=== PATIENT | male | born 1935 | race Caucasian/White ===

== ENCOUNTER 2016-10-30 23:56 | Inpatient (IN) | payer MEDICARE, OTHER ==
[~2016-10-30] VITALS: Ht 172.7 cm; Wt 79.0 kg
--- NOTE | ~2016-10-30 | DS ---
ADMIT: 10/31/2016 RM/LOC: 307 [facility] MR#: [id number] ACC#: [id number] [address] [place], [place] [address] TYLER JONES [address] [place] [address] Discharge Summary SEX: M AGE: 81 : 1935 ADMISSION DATE: 10/31/2016 DISCHARGE DATE: 11/03/2016 SERVICE: Neurosurgery. REASON FOR ADMISSION: 1. 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 2. Fall. 3. Nausea, vomiting, and diarrhea. 4. Vertigo. HOSPITAL COURSE: Mr. Jones was in his normal state of health until the day of admission. He fell ill with vomiting, diarrhea, and dizziness. He also had a small headache. He was lying in bed and tried to get up, got dizzy and fell striking his head. His was not able to help him up, and he was brought to [facility] ER by ambulance. A CT scan of his head was obtained and revealed an intracranial hemorrhage. Later that morning, he had decreased level of consciousness. His vital signs were stable. He was awake, confused and agitated. He was moving all extremities x4. An EVD was placed at bedside. A repeat CT scan of his head revealed good placement of the EVD. Hospital day #2, he was awake and alert. He was oriented x4, his vital signs were stable. He was moving all extremities x4 with 5/5 strength. His EVD was intact. He was evaluated and worked with PT, OT, and ST and he tolerated this quite well. Hospital day #3, he was awake and alert, his vital signs were stable. He was moving all extremities x4. His EVD was intact. His EVD was clamped. He continued to work with the therapies and tolerated it very well. Hospital day #4, his vital signs were stable, his ICPs were less than 10. He was awake and alert, mildly disoriented. He was moving all extremities x4. His EVD was removed without difficulty. His wound was clean, dry, and intact. He continued to work with physical therapy, occupational therapy, and speech therapy. A repeat noncontrast head CT revealed no acute findings. He was evaluated by the inpatient rehabilitation unit and deemed to be a good candidate for inpatient rehabilitation with plans to return to his prior function of living status. On the day of discharge, he was deemed medically fit for transfer to the inpatient rehabilitation unit. DISCHARGE CONDITION: Good. MEDICATIONS: Lisinopril 10 mg p.o. daily. ADMIT: 10/31/2016 RM/LOC: 307 [facility] MR#: [id number] [address] [id number] TYLER JONES [address] [facility] [address] Discharge Summary SEX: M AGE: 81 : 1935 DISCHARGE INSTRUCTIONS: He may shower, he should limit the amount of time his incision is under the water. He should use baby shampoo only in his hair. He should continue with physical therapy, occupational therapy, and speech therapy. He will call with any questions or concerns including neurological worsening, signs or symptoms of infection, or any other issues. FOLLOWUP: He will follow up in clinic in [address] Escalante. DISPOSITION: He was discharged to the inpatient rehabilitation unit. Total [id number] time for the discharge planning and care coordination was 30 minutes. Chelo Art APRN / Solomon Escalante MD / yeni JOB #: [id number] CC: Solomon Escalante MD, Attending Physician Solomon Escalante MD, Family Physician
--- NOTE | 2016-10-31 07:48 | HP ---
ADMIT: 10/31/2016 RM/LOC: 307 [facility] MR#: [id number] [id number] [place], [place] [address] TYLER JONES [address] [place] [address] History and Physical SEX: M AGE: 81 : 1935 DATE OF SERVICE: REASON FOR ADMIT: Intracranial hemorrhage. HISTORY OF PRESENT ILLNESS: Mr. Jones is an 81-year-old gentleman who was dizzy in bed. He tried to get up and fell down striking the left part of his head. He has been nauseated and dizzy since then. He doctors with Dr. Chang. PAST MEDICAL HISTORY: Hypertension. MEDICATIONS: He is on lisinopril, although it sounds like this was fairly recently started. ALLERGIES: FLU SHOT. SOCIAL HISTORY: He is a nonsmoker and nondrinker. FAMILY HISTORY: No history of neurosurgical disease. REVIEW OF SYSTEMS: Complete review of systems was obtained and found to be negative with the exception of the aforementioned HPI. Nipride drip has been started for hypertension. PHYSICAL EXAMINATION: VITAL SIGNS: Most recent vital signs 167/85, 73 beats, 20 respirations, 97.1 degrees, 98% on room air. GENERAL: He is an otherwise healthy, age-appropriate appearing 81-year-old gentleman with aleft frontal subgaleal hematoma. HEENT: No scleral icterus. Clear oropharynx, although he is actively dry heaving. LUNGS: Normal respiratory excursion. ABDOMEN: Nontender abdomen. EXTREMITIES: 2+ radial pulses. NEUROLOGICAL EXAMINATION: MENTAL STATUS: He is awake and alert. He is oriented to person and place. CRANIAL NERVES: Cranial nerves II through XII were individually tested. He has nystagmus, worse to the left. No diplopia. MOTOR EXAM: Is difficult to get him to comply with motor exam. He is very nauseated. Every time he moves, he feels like throwing up more, but he appears to have full motor activation of the upper and lower extremities. DEEP TENDON REFLEXES: 3/4 in the upper and lower extremities. CEREBELLAR: I could not really get a full cerebellar examination on him. GAIT: Not testable. He is a significant fall risk. ADMIT: 10/31/2016 RM/LOC: 307 [facility] MR#: [id number] [address] [address] TYLER JONES [address] [place] [address] History and Physical SEX: M AGE: 81 : 1935 ASSESSMENT AND PLAN: Mr. 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 I do not see signs of hydrocephalus at this point. I discussed with his the critical situation of this and that he may require posterior fossa craniotomy, although at this point, he looks very good and he has enough cerebral atrophy. As long as he does not build up hydrocephalus, he may end up getting by from this with the exception of needing months of physical therapy and that the nausea is likely to persist for some time. I believe she understands all of this, including the possibility of as well as other outcomes. We will keep an eye on him in the intensive care unit with a CTA in the morning for repeat evaluation. Solomon Escalante MD/ linette JOB #: [id number] CC: Solomon Escalante, Attending Physician Solomon Escalante, Family Physician
--- NOTE | 2016-11-03 10:16 | OR ---
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 INDICATION: This is a gentleman, who presented overnight. He has a small cerebellar hemorrhage and casting of the 4th ventricle into the aqueduct of Sylvius and 3rd ventricle. He had been doing very well overnight and then had started to slow decline this a.m. I discussed the risks, benefits, and alternatives of external ventricular drainage with his with risks including, but not limited to, OH, DVT, PE, pneumonia, , further intracranial hemorrhage, inability to recover, neurological damage, infection as well as others. I believe, she understands the risks, benefits, and alternatives and wishes to proceed ahead. DESCRIPTION OF PROCEDURE: After gaining informed consent and performing a time-out, the patient's right side of scalp was prepped and draped in usual sterile fashion. This was anesthetized at Miky's point and then an incision was fashioned. The cranial access drill was then used drilling through the skull and then sounding and perforating the dura. Once this was complete, the back to seal external ventricular drain was then passed resulting in fluid at approximately 5 cm, this was advanced down to 7 cm and then tunneled out. This was sewn in place with 2-0 silk and subsequently with 4-0 Monocryl on the insertion site. The patient tolerated the procedure well. The initial CSF did come out under pressure approximately 20 cm to 25 cm above the tragus. He was awake and moving all extremities at the completion of the procedure. Solomon Escalante MD/ linette JOB #: [id number] CC: Solomon Escalante, Attending Physician Sloomon Escalante, Family Physician
--- NOTE | 2016-11-18 21:34 | ER ---
ADMIT: 10/31/2016 RM/LOC: 307 [facility] MR#: [id number] [address] [place], [place] [address] TYLER JONES [address] [place] [address] Emergency Room Report SEX: M AGE: 81 : 1935 DATE: 10/30/2016 HISTORY OF PRESENT ILLNESS: An 81-year-old gentleman, who apparently became sick tonight with vomiting and diarrhea, was dizzy, lightheaded, had a small headache, apparently fell striking the left forehead area. His called the ambulance as she was unable to pick him up, subsequently brought him in here. Patient mildly obtunded, but would answer questions appropriately, was complaining of vomiting and some diarrhea and generalized weakness. PAST MEDICAL HISTORY: Hypertension. He said he had 3 or 4 episodes of vomiting tonight, 1 episode of diarrhea. He said he gets headaches and this headache was no different than his prior. PHYSICAL EXAMINATION: GENERAL: Revealed an 81-year-old gentleman, in moderate amount of distress. He is anxious, restless. HEENT: There was a contusion over the left forehead. Pupils are sluggishly reactive. LUNGS: Clear to auscultation. CARDIOVASCULAR: Tachycardia with no murmurs. ABDOMEN: Mildly tender in the suprapubic region and he had increased bowel tones. SKIN: Significant for contusion over the forehead. EXTREMITIES: Unremarkable. NEUROLOGICAL: He is mildly obtunded, but would answer questions appropriately. NEURO: Cranial nerves II through XII are grossly intact. Muscle strength is symmetric and weak. He was extremely anxious and restless. LABORATORY DATA AND IMAGING: EKG was unremarkable. CT scan of the head revealed intraparenchymal bleed. Neurosurgery was subsequently consulted. The patient was admitted to the Neurosurgery. A heparin drip was started. A CBC was obtained and a CMP and coags. The patient is being admitted for hemorrhagic stroke. Omid Rivera MD/ linette JOB #: [id number] CC: Solomon Escalante MD, Attending Physician Solomon Escalante MD, Family Physician
[2016-11-26] MEDS ORDERED: VITAMIN D31000 UNIT PO (11:28)
[2016-11-26] MEDS ORDERED: FLOMAX DPS0.4 MG PO (11:28)
[2016-11-26] MEDS ORDERED: VITAMIN B-12500 MCG PO (11:28)
[2016-11-26] MEDS ORDERED: SENOKOT S1 TAB PO (11:29)
[2016-11-26] MEDS ORDERED: DITROPAN XL5 MG PO (11:29)
[2016-11-26] MEDS ORDERED: ZESTRIL DPS5 MG PO (11:29)
[2016-11-26] MEDS ORDERED: TYLENOL DPS325 MG PO (11:30)
== END 2016-11-03 13:15 | disposition short-term general hospital (02) | DRG 24 ==
LOC: ER 23:56 → 3ICU 10-31 00:45
PROVIDERS: ADMIT Neurological Surgery
PROC: 03HY32Z Insertion of Monitoring Device into Upper Artery, Percutaneous Approach (ICD-10-PCS; principal; 2016-10-31)
PROC: 009630Z Drainage of Cerebral Ventricle with Drainage Device, Percutaneous Approach (ICD-10-PCS; 2016-10-31)
DX: I61.5 Nontraumatic intracerebral hemorrhage, intraventricular (principal); G91.9 Hydrocephalus, unspecified; I10 Essential (primary) hypertension

== ENCOUNTER 2016-11-11 22:34 | Inpatient (IN) | payer MEDICARE, OTHER ==
[~2016-11-11] VITALS: Ht 170.2 cm; Wt 79.4 kg
--- NOTE | 2016-11-14 10:18 | HP ---
ADMIT: 11/11/2016 RM/LOC: [address] [facility] MR#: [id number] [address] [place], [place] [address] TYLER JONES [address] [place] [address] History and Physical SEX: M AGE: 81 : 1935 Corrected: 11/13/2016 1402 yeni DATE OF SERVICE: CHIEF COMPLAINT: Fever. HISTORY OF PRESENT ILLNESS: The patient is an 81-year-old gentleman I saw in consult in the IRU earlier today. He has had a fever off and on all day. He this evening on routine vitals check had hypotension. This persisted despite IV fluid bolus. He otherwise really does not report any new complaints this evening. No pain. No shortness of breath. No nausea. No vomiting. No confusion. He is still oriented. He had received Cipro IV earlier today. Otherwise, he did not really push his oral fluids today according to nursing. PAST MEDICAL HISTORY: Recent intraventricular hemorrhage earlier this month. SOCIAL HISTORY: The patient quit smoking back in 1996. He is retired, lives at home with his . FAMILY HISTORY: Reviewed and noncontributory. REVIEW OF SYSTEMS: As per HPI. Otherwise, completely reviewed and negative. MEDICATIONS: He is on steroids. He was gettin. Reglan. 2. Uroxatral. 3. Vitamin D. 4. Zestril. 5. B12 vitamin injection. ALLERGIES: HE IS ALLERGIC TO PENICILLIN WELL INFLUENZA VACCINE. PHYSICAL EXAMINATION: VITAL SIGNS. Blood pressure currently is 84 systolic. Upstairs it was 73/45. He is on room air 94%. Pulse 89. T-max today is 101.4. Blood pressure earlier today was in the 120s. GENERAL: He is alert and oriented x3, in no acute distress, resting comfortably in bed. HEENT: Normocephalic and atraumatic. Pupils are equal bilaterally. No icterus. Dry mucous membranes. NECK: No lymphadenopathy. Soft and supple. Trachea midline. LUNGS: Clear to auscultation bilaterally. No wheezes, rales, or rhonchi. HEART: Regular rate and rhythm. No murmurs, rubs, or gallops. ABDOMEN: Soft, nontender, nondistended. Bowel sounds present. EXTREMITIES: No cyanosis, clubbing, or edema. MUSCULOSKELETAL: 5/5 strength in all 4 extremities equally. NEUROLOGICAL: No focal deficits noted. SKIN: No rashes noted. Dry poor skin turgor. LABORATORY AND X-RAY DATA: Creatinine 1.5 earlier today, phos 2.3, AST 9, BUN ADMIT: 11/11/2016 RM/LOC: 410 [facility] MR#: [id number] [address] [address] TYLER JONES [address] [place] [address] History and Physical SEX: M AGE: 81 : 1935 is 19. White count 26, hemoglobin 15.4. Sodium 136, potassium 3.8. UA was positive for leukocytes and bacteria, negative for nitrite. Procalcitonin earlier today is 0.89. ASSESSMENT AND PLAN: 1. Sepsis. 2. Urinary tract infection likely source of sepsis. 3. Recent intraventricular hemorrhage. PLAN: At this point in time, he remained quite hypotensive despite IV fluid boluses. Appears septic. Admitting him to the ICU as he is critically ill. Continue with IV fluid boluses. Add additional antibiotics to his Cipro. Add Merrem. Concern would be for a drug-resistant UTI. We will await urine cultures. Monitor labs again in the morning. If he continues to have fevers, consider imaging neurological, but does not really have any concerning signs. No focal neurologic signs. He is not confused. No worsened headache. No meningismus. I suspect this is all still urinary source. He will remain in the ICU here. Luis Antonio Castillo MD/ linette JOB #: [id number] CC: Luis Antonio Castillo, Attending Physician Luis Antonio Castillo, Family Physician Corrected: 11/13/2016 1402 yeni
--- NOTE | 2016-11-20 22:37 | DS ---
ADMIT: 11/11/2016 RM/LOC: 410 [facility] MR#: [id number] [address] [address] TYLER JONES [address] [place] [address] Discharge Summary SEX: M AGE: 81 : 1935 ADMISSION DATE: 11/11/2016 DISCHARGE DATE: 11/14/2016 CONSULTATIONS: None. FINAL DIAGNOSES: 1. Acute septic shock secondary to E. coli. 2. UTI (urinary tract infection) E. (Escherichia) coli. 3. Recent intraventricular hemorrhage. REASON FOR ADMISSION: The patient is an 81-year-old gentleman was up in the IRU following his recent stay for intraventricular hemorrhage. Had an abrupt onset of fever. Ultimately despite antibiotics, developed hypotension. Transferred to the ICU. HOSPITAL COURSE: The patient was admitted to the ICU. Given large volume fluid resuscitation. Was on pressors for while. Ultimately slowly and steadily he improved. Continued on antibiotics. Transitioned to oral once we got sensitivities back. He felt much improved and was transferred ultimately back to inpatient rehab. DISCHARGE INSTRUCTIONS: Please see discharge MAR, which I fully reviewed. He will go up to the IRU to finish out his course. Luis Antonio Castillo MD/ elena JOB #: [id number] CC: Luis Antonio Castillo MD, Attending Physician Luis Antonio Castillo MD, Family Physician
[2016-11-26] MEDS ORDERED: FLOMAX DPS0.4 MG PO (11:28)
[2016-11-26] MEDS ORDERED: VITAMIN B-12500 MCG PO (11:28)
[2016-11-26] MEDS ORDERED: VITAMIN D31000 UNIT PO (11:28)
[2016-11-26] MEDS ORDERED: DITROPAN XL5 MG PO (11:29)
[2016-11-26] MEDS ORDERED: ZESTRIL DPS5 MG PO (11:29)
[2016-11-26] MEDS ORDERED: SENOKOT S1 TAB PO (11:29)
[2016-11-26] MEDS ORDERED: TYLENOL DPS325 MG PO (11:30)
== END 2016-11-14 11:36 | disposition short-term general hospital (02) | DRG 871 ==
LOC: 4PCU 22:34 → 3ICU 22:34 → 4PCU 11-12 22:24
PROVIDERS: ADMIT Internal Medicine
DX: A41.51 Sepsis due to Escherichia coli [E. coli] (principal); R65.21 Severe sepsis with septic shock; N39.0 Urinary tract infection, site not specified; R33.9 Retention of urine, unspecified; Z87.891 Personal history of nicotine dependence; Z86.73 Personal history of transient ischemic attack (TIA), and cerebral infarction without residual deficits; Z66 Do not resuscitate

== ENCOUNTER 2016-11-14 10:28 | Inpatient (IN) | payer MEDICARE, OTHER ==
[~2016-11-14] VITALS: Ht 170.2 cm; Wt 81.1 kg
--- NOTE | 2016-11-18 19:45 | NUR ---
DAY SHIFT SUMMARY: SEE OT NOTE/FIM FOR GROOMING AND DRESSING; DENTURES FOR EATING; MIN ASSIST OF 1 W/ GB/WALKER FOT TOILETING, BED/CHAIR/W/C/TOILET TRANSFERS AND AMBULATION; PT IS ON VOIDING SCHEDULE
[2016-11-26] MEDS ORDERED: VITAMIN D31000 UNIT PO (11:28)
[2016-11-26] MEDS ORDERED: FLOMAX DPS0.4 MG PO (11:28)
[2016-11-26] MEDS ORDERED: VITAMIN B-12500 MCG PO (11:28)
[2016-11-26] MEDS ORDERED: ZESTRIL DPS5 MG PO (11:29)
[2016-11-26] MEDS ORDERED: DITROPAN XL5 MG PO (11:29)
[2016-11-26] MEDS ORDERED: SENOKOT S1 TAB PO (11:29)
[2016-11-26] MEDS ORDERED: TYLENOL DPS325 MG PO (11:30)
--- NOTE | 2016-12-06 09:35 | DS ---
ADMIT: 11/14/2016 RM/LOC: 615 [facility] MR#: [id number] [address] [place], [place] [address] TYLER JONES [address] [place] [address] General Discharge Summary SEX: M AGE: 81 : 1935 ADMISSION DATE: 11/14/2016 DISCHARGE DATE: 11/25/2016 DISCHARGE DIAGNOSIS: Stroke 01.9 other stroke, I61.5 nontraumatic intracerebral hemorrhage, intraventricular, onset 10/30/2016, comorbid conditions per initial H and P. Other diagnoses per hospital course below. HOSPITAL COURSE: Please see my initial H and P for details prior to transfer to the IRU the second time. He was transferred off for urosepsis then returned for continued rehab. He was medically stable on transfer. PVRs remained high at 447 and then again at 450. Pain and bowel regimen again adjusted. Early ambulation used for DVT prophylaxis. DNR decision on 11/14/2016 and confirmation was already had previously. CIC q.i.d. to keep volumes of urine bladder less than 600 mL in the bladder. Did not do bladder scans unless necessary. We did clean intermittent catheterization if he was not able to void about 4 times a day at 7 noon, 5 p.m. and 10 p.m. then we changed the CIC to twice a day at 7 and 7. We did CIC p.r.n. bladder fullness or pain. Tried to get him to void on his own. Potassium, hypokalemia, and hypophosphatemia were replaced. Lisinopril was restarted for hypertension. PVR came down nicely to 109 by 11/16/2016. Did an outing on the weekend of 11/17/2016. CIC discontinued. We then instituted in and out cath p.r.n. lower abdominal pain and/or no void in 6 to 8 hours. We started oxybutynin 2.5 mg p.o. at bedtime for nocturia and frequency at night. TRAVON was discontinued. Vitamin D replaced. KCl replaced for hypokalemia. B12 replaced. Zestril adjusted for hypertension. He continued on the Cipro for UTI due to E. coli. Suture knots x2 to head removed without difficulty on 11/20/2016. By Neurosurgery, Ditropan was changed to 5 mg XL at bedtime. PVR done once daily, came down to 104. Dietitian followed to optimize nutrition. Pharmacy followed to optimize medication management. The patient had a syncopal episode and therapy. No head trauma. EKG obtained showed no changes. Per the patient and , he has these episodes about once a year I guess. Neuro was stable. He had no further events rest of his stay, but his ADMIT: 11/14/2016 RM/LOC: 615 [facility] MR#: [id number] [facility] [address] [address] TYLER JONES [address] [place] [address] General Discharge Summary SEX: M AGE: 81 : 1935 orthostatic blood pressures were positive on 11/22/2016. Lab was monitored regularly. Alfuzosin changed to Flomax. Bowel regimen adjusted. Orthostatic blood pressures rechecked and within normal limits on recheck. The patient was medically stable at time of discharge. Please see IRU interdisciplinary discharge summary details regarding progress in therapy. DISCHARGE DISPOSITION: Home. Outpatient PT and OT at balance and mobility. Had a front wheeled walker and shower chair for home use. DISCHARGE MEDICATIONS: Please see discharge med rec. FOLLOWUP: Neurosurgery to be scheduled. [facility] provider as scheduled. David Wolfe MD/ linette JOB #: [id number] CC:
== END 2016-11-25 14:30 | disposition home or self-care (01) | DRG 57 ==
LOC: 6IRU 10:28
PROVIDERS: ADMIT Physical Medicine & Rehabilitation
PROC: F08Z1FZ Dressing Techniques Treatment using Assistive, Adaptive, Supportive or Protective Equipment (ICD-10-PCS; principal; 2016-11-14)
PROC: F07Z5FZ Bed Mobility Treatment using Assistive, Adaptive, Supportive or Protective Equipment (ICD-10-PCS; principal; 2016-11-14)
PROC: F06ZDZZ Swallowing Dysfunction Treatment (ICD-10-PCS; principal; 2016-11-14)
PROC: F08Z2FZ Grooming/Personal Hygiene Treatment using Assistive, Adaptive, Supportive or Protective Equipment (ICD-10-PCS; principal; 2016-11-14)
PROC: F07Z9FZ Gait Training/Functional Ambulation Treatment using Assistive, Adaptive, Supportive or Protective Equipment (ICD-10-PCS; principal; 2016-11-14)
DX: I69.191 Dysphagia following nontraumatic intracerebral hemorrhage (principal); I69.119 Unspecified symptoms and signs involving cognitive functions following nontraumatic intracerebral hemorrhage; N39.0 Urinary tract infection, site not specified; E83.39 Other disorders of phosphorus metabolism; E53.0 Riboflavin deficiency; R13.10 Dysphagia, unspecified; I10 Essential (primary) hypertension; R26.89 Other abnormalities of gait and mobility; R26.2 Difficulty in walking, not elsewhere classified; E78.5 Hyperlipidemia, unspecified; E87.6 Hypokalemia; B96.20 Unspecified Escherichia coli [E. coli] as the cause of diseases classified elsewhere; E55.9 Vitamin D deficiency, unspecified; N40.1 Benign prostatic hyperplasia with lower urinary tract symptoms; R33.8 Other retention of urine; R35.1 Nocturia; R35.0 Frequency of micturition; I95.1 Orthostatic hypotension; Z66 Do not resuscitate; Z87.891 Personal history of nicotine dependence